=== PATIENT | male | born 1950 | race Caucasian/White ===

== ENCOUNTER 2017-02-21 17:43 | Emergency (ER) | payer BC ==
[2017-02-21 17:47] VITALS: TEMP 98.2
--- NOTE | 2017-02-21 18:02 | EDPHY ---
H & P Stated Complaint: tripped fell onto l shoulder/possible dislocation - Personal History Current Tetanus/Diphtheria Vaccine: Yes - Medical/Surgical History Hx Asthma: No Hx Chronic Respiratory Disease: No Hx Diabetes: No Hx Cardiac Disease: No Hx Renal Disease: No Hx Cirrhosis: No Hx Alcoholism: No Hx HIV/AIDS: No Hx Splenectomy or Spleen Trauma: No Other PMH: denies - Social History Smoking Status: Never smoked Time Seen by Provider: 02/21/17 17:52 HPI/ROS: CHIEF COMPLAINT: "I think I dislocated my shoulder" HISTORY OF PRESENT ILLNESS: 67-year-old male arrives via private vehicle after he sustained a mechanical trip and fall on incongruent he in his garden landing on his left shoulder. Complaining of acute left shoulder pain concerned he is dislocated shoulder. No prior history of dislocation. No paresthesia. No head injury. No alcohol or drug use. He also sustained an abrasion to his left dorsal elbow with full pain-free range of motion. Last oral intake was at 3:00 p.m. consisting of a handful of [employer] candies Occurred shortly prior to arrival. No prolonged periods of immobility on the ground. PRIMARY CARE PROVIDER:[facility] REVIEW OF SYSTEMS: A ten point review of systems was performed and is negative with the exception of the items mentioned in the HPI PAST MEDICAL/SURGICAL HISTORY: no anticoagulant use SOCIAL HISTORY: denies alcohol use at time of incident PHYSICAL EXAM 1) GENERAL: Well-developed, well-nourished, alert and oriented. Appears to be in no acute distress. Answering questions appropriately. 2) HEAD: Normocephalic, atraumatic 3) HEENT: Pupils equal, round, reactive to light bilaterally. Negative Horners. Nasopharynx, oropharynx, clear. No deformity or angulation of nose. No septal hematoma. No rhinorrhea. No oral trauma. Ears bilaterally with normal tympanic membranes. No hemotympanum. No fluid or blood in the external auditory canal. No raccoon eyes. No Ordoñez sign. . 4) NECK: No cervical collar is on. Posterior cervical spine is nontender, no stepoff, no effusion. Full range of motion which does not elicit any midline cervical spine pain, no posterior midline tenderness, no step-off. 5) LUNGS: Clear to auscultation bilaterally, no wheezes, no rhonchi, no retractions. No obvious signs of trauma. No chest wall pain. No flaring, no grunting. Moving symmetrically. No crepitus. 6) HEART: Regular rate and rhythm, 7) ABDOMEN: No guarding, no rebound, no focal tenderness, no peritoneal signs, no signs of trauma, no ecchymosis 8) MUSCULOSKELETAL: Left upper extremity: Tender to palpation left proximal humerus with no step-off of the shoulder. Intact skin at shoulder and clavicle. There is an abrasion to the left dorsal elbow with full pain-free range of motion no radial head pain. Distal radial ulnar median nerve function intact. Otherwise, Moving all extremities, no focal areas of tenderness, no obvious trauma. 9) BACK: No midline vertebral tenderness, no fluctuance, no step-off, no obvious trauma, no visual or palpable abnormality. 10) SKIN: Abrasion left elbow DIFFERENTIAL DIAGNOSIS: [ in no particular include but limited to fracture, dislocation, fracture-dislocation (Raven Clark) Constitutional: Initial Vital Signs Temperature (C) 36.8 C 02/21/17 17:44 Heart Rate 77 02/21/17 17:44 Respiratory Rate 18 02/21/17 17:44 Blood Pressure 121/98 H 02/21/17 17:44 O2 Sat (%) 100 02/21/17 17:44 O2 Delivery Mode Nasal Cannula O2 (L/minute) 2 Allergies/Adverse Reactions: No Known Allergies Allergy (Unverified 02/21/17 17:44) Home Medications: Medication Instructions Recorded Cholecalciferol Vit D3 [Vitamin D3 1,000 units PO DAILY 02/21/17 (*)] Gabapentin [Neurontin 300 MG (*)] 300 mg PO DAILY@14 PRN 02/21/17 Gabapentin [Neurontin 300 MG (*)] 600 mg PO BID 02/21/17 Multivitamins [Multivitamin (*)] 1 each PO DAILY 02/21/17 Medical Decision Making - Diagnostics Imaging: Discussed imaging studies w/ oracle technical developer Radiologist Procedures: Procedure: Splint A Lucero splint was applied by ER engineering laboratory technician. After application of the splint I returned and re-examined the patient. The splint was adequately immobilizing the joint and distal to the splint the patient's circulation and sensation were intact. Patient shows no signs of compartment syndrome. Was given orthopedic precautions. (Raven Clark) ED Course/Re-evaluation: This case was discussed with Dr. Krysten Hunter in the ER. Will obtain 3D imaging to better evaluate the patient's comminuted proximal humerus fracture including the humeral head 7:40 p.m.: Phone consultation with Dr. Isac Butts who will review the patient 's images remotely and call me back 8:13 p.m.: Phone consultation with Dr. Isac Butts who has reviewed the patient's images remotely, recommended that because the patient is neurovascular intact because this is a closed fracture he recommended Lucero brace, repeat imaging after cement abrasion follow up in clinic 8:43 p.m.: Phone call from informed me that he will arrange for outpatient surgery tomorrow at [facility] with Dr Morgan who will be calling the patient is evening to discuss details of his surgery tomorrow. 9:30 p.m.: Dr. Hunter has been consulted in spoken with Dr. Butts the patient complains of continued pain. Dr. Butts recommended the patient have surgery tomorrow with his colleague Dr. Ahsan Morgan at [facility] and Dr. Morgan will call the patient's evening discussed arrangements for surgery. Discussed this with the patient and he requests further pain control and pain is sufficiently controlled feels comfortable being discharged home. He remains neurovascularly intact 10:45 p.m.: Patient re-evaluated, he has significant more comfortable, sitting upright in bed. He would like to be discharged home. 11:01 p.m.: Patient has spoken with Dr Morgan a [facility] and patient will report at noon at [facility] for preop. He feels comfortable being discharged. His pain is controlled. Usual and customary orthopedic precautions instructions provided. He has been given copies of his imaging studies (Raven Clark) Other Provider: The patient wasevaluatedand managed by themidlevel provider. Idiscussed the patient's presentation and course with thephysicianassistantor nurse practitionerand agree with theevaluation. I reviewed the patients xrays and discussed the plan with the patient. Patient understands that Dr Butts is recommending definitive treatment by Dr. Paz, and that the local orthopedic surgeons in Dr Butts's group who would be comfortable with this injury are not available. I have spoken to Dr Paz , who is able to see the pateint and provide operative repair tomorrow. Patient may also be admitted to [facility] if he is not comfortable with oral meds and discharge to home. Dr Paz will make arrangements to admit to [facility] if needed. After receiving dilaudid IV, patient is more comfortable with better pain control. Discharged to home. Dr Paz has already contacted patient via phone and will be making arrangments for definitive care tomorrrow. My co-signature indicates that Cheli reviewed this chart and I agree with the findings and plan of care asdocumented. I am the secondary supervising physician. (Krysten Hunter) - Data Points Laboratory Results: Laboratory Results 02/21/17 18:50 02/21/17 18:50 Medications Given: Discontinued Medications Fentanyl (Sublimaze) 100 mcg IVP EDNOW ONE Stop: 02/21/17 18:47 Last Admin: 02/21/17 18:54 Dose: 100 mcg Fentanyl (Sublimaze) 100 mcg IVP EDNOW ONE Stop: 02/21/17 20:19 Last Admin: 02/21/17 20:25 Dose: 100 mcg Hydromorphone HCl (Dilaudid) 1 mg IVP EDNOW ONE Stop: 02/21/17 22:00 Last Admin: 02/21/17 22:04 Dose: 1 mg Ketorolac Tromethamine (Toradol) 15 mg IVP EDNOW ONE Stop: 02/21/17 20:50 Last Admin: 02/21/17 21:00 Dose: 15 mg Ondansetron HCl (Zofran) 4 mg IVP EDNOW ONE Stop: 02/21/17 18:47 Last Admin: 02/21/17 18:54 Dose: 4 mg Ondansetron HCl (Zofran Odt 4 Mg Prepack#2) 1 btl TAKEHOME EDNOW ONE Stop: 02/21/17 22:43 Last Admin: 02/21/17 22:52 Dose: 1 btl Oxycodone/Acetaminophen (Percocet 5/325mg Prepack#4) 1 btl TAKEHOME EDNOW ONE Stop: 02/21/17 22:43 Last Admin: 02/21/17 22:51 Dose: 1 btl Oxycodone/Acetaminophen (Percocet 5/325mg Prepack#4) 1 btl TAKEMURPHY EDNOW ONE Stop: 02/21/17 23:05 Last Admin: 02/21/17 23:05 Dose: 1 btl Departure - Departure Disposition: Home, Routine, Self-Care Clinical Impression: Fracture of humeral head, left, closed Qualifiers: Encounter type: initial encounter Qualified Code(s): S42.292A - Other displaced fracture of upper end of left humerus, initial encounter for closed fracture Condition: Good Instructions: Oxycodone/Acetaminophen (By mouth), Ondansetron (By mouth), Narcotic-Analgesic/Acetaminophen (By mouth), Arm Fracture in Adults (ED) Additional Instructions: Return to the ER immediately if you experience discoloration, have worsening pain, numbness, tingling, or any other symptoms that concern you. If you received x-rays in the emergency department today, be advised, that ligamentous , tendon, muscular, and other non-bony injury cannot be fully ruled out. Try to keep your affected extremity elevated above the level of your chest, and keep cold packs on the affected area, for the next 48 hours. Referrals: Follow-up, with Dr Morgan tomorrow morning [Other] - 1 day without fail
[2017-02-21] MEDS ORDERED: ONDANSETRON 4 MG/2 ML VIAL IVP ONE (18:46)
[2017-02-21] MEDS ORDERED: fentaNYL 100 MCG/2 ML INJ IVP ONE ×2 (18:46→20:18)
[2017-02-21] MEDS ORDERED: fentaNYL 100 MCG/2 ML INJ ONE (18:47)
[2017-02-21] MEDS ORDERED: ONDANSETRON 4 MG/2 ML VIAL ONE (18:47)
[2017-02-21 18:56] VITALS: O2SAT 96
[2017-02-21 19:22] LABS: % IMMATURE GRANULYOCYTES 1.5 % (0.0-1.1); ABSOLUTE IMMATURE GRANULOCYTES 0.16 10^3/uL (0.00-0.10); ADD DIFF? NO; ADD MORPH? NO; ADD SCAN? NO; ANION GAP 13 mEq/L (8-16); ATYPICAL LYMPHOCYTE FLAG 0 (0-99); CALCIUM 9.9 mg/dL (8.5-10.4); CARBON DIOXIDE 22 mEq/l (22-31); CHLORIDE 108 mEq/L (97-110); CREATININE 1.3 mg/dL (0.7-1.3); FRAGMENT RBC FLAG 0 (0-99); GLOMERULAR FILTRATION RATE 56; GLUCOSE 115 mg/dL (70-100); HEMATOCRIT 47.8 % (40.0-51.0); HEMOGLOBIN 16.6 g/dL (13.7-17.5); LEFT SHIFT FLG 10 (0-99); LIPEMIA HEMOLYSIS FLAG 90 (0-99); MEAN CELL HEMOGLOBIN 33.6 pg (27.9-34.1); MEAN CELL HEMOGLOBIN CONCENTR. 34.7 g/dL (32.4-36.7); MEAN CELL VOLUME 96.8 fL (81.5-99.8); MEAN PLATELET VOLUME 11.9 fL (8.7-11.7); PLATELET CLUMPS FLAG 0 (0-99); PLATELET COUNT 198 10^3/uL (150-400); POTASSIUM 4.4 mEq/L (3.5-5.2); RED BLOOD CELL COUNT 4.94 10^6/uL (4.40-6.38); RED CELL DISTRIBUTION WIDTH 12.5 % (11.5-15.2); SODIUM 143 mEq/L (134-144)
[2017-02-21 19:27] LABS: APTT 24.5 SEC (23.0-38.0); INR 1.07 (0.83-1.16); PROTIME(PATIENT) 13.8 SEC (12.0-15.0)
[2017-02-21] MEDS ORDERED: KETOROLAC 15 MG/1 ML SDV ONE (20:48)
[2017-02-21] MEDS ORDERED: KETOROLAC 15 MG/1 ML SDV IVP ONE (20:49)
[2017-02-21] MEDS ORDERED: HYDROmorphONE/DILAUDID 1 MG/ML SYR ONE (21:58)
[2017-02-21] MEDS ORDERED: HYDROmorphONE/DILAUDID 1 MG/ML SYR IVP ONE (21:59)
[2017-02-21] MEDS ORDERED: HYDROCOD/APAP 5/325 PREPACK#6 BTL TAKEHOME ONE (22:26)
[2017-02-21] MEDS ORDERED: OXYCODONE/APAP 5/325MG PREPACK#4 BTL TAKEHOME ONE ×3 (22:42→23:04)
[2017-02-21] MEDS ORDERED: ONDANSETRON 4MG PREPACK#2 BTL TAKEHOME ONE (22:42)
[2017-02-21 22:43] VITALS: BP 135/96; PULSE 72; RESP 18
== END 2017-02-21 23:12 | disposition home or self-care (01) ==
LOC: EEVIPCON 17:43 → MERGE 17:43 → EDBD 17:43
DX: S42.292A Other displaced fracture of upper end of left humerus, initial encounter for closed fracture (principal); W01.0XXA Fall on same level from slipping, tripping and stumbling without subsequent striking against object, initial encounter; Y92.007 Garden or yard of unspecified non-institutional (private) residence as the place of occurrence of the external cause
CPT/HCPCS: 96374; A4565; J1170; J1885; J2405; J3010

== ENCOUNTER → 2018-11-18 | Outpatient (CLI) | payer OTHER | LOC: FLAB 10:13 | PROVIDERS: ATTEND Internal Medicine | DX: J40 Bronchitis, not specified as acute or chronic (principal) ==

== ENCOUNTER → 2018-11-30 | Outpatient (CLI) | payer OTHER | LOC: FIMAGING 09:26 | PROVIDERS: ATTEND Internal Medicine Critical Care Medicine | DX: J98.09 Other diseases of bronchus, not elsewhere classified (principal); I51.7 Cardiomegaly; K76.0 Fatty (change of) liver, not elsewhere classified; R16.1 Splenomegaly, not elsewhere classified; K44.9 Diaphragmatic hernia without obstruction or gangrene; D35.01 Benign neoplasm of right adrenal gland; Z90.49 Acquired absence of other specified parts of digestive tract ==